=== PATIENT | male | born 1965 | race Caucasian/White ===

== ENCOUNTER 2017-02-25 11:35 | Emergency (ER) | payer BC ==
[~2017-02-25] VITALS: Ht 170.2 cm; Wt 83.0 kg
[2017-02-25 11:45] VITALS: BP 154/92
[2017-02-25] MEDS ORDERED: FLUO20CA19 PO (12:45)
== END 2017-02-25 13:42 | disposition home or self-care (01) ==
LOC: ED 13:39
DX: M70.41 Prepatellar bursitis, right knee (principal)
CPT/HCPCS: 29505